=== PATIENT | female | born 1955 | race Caucasian/White ===

== ENCOUNTER 2017-10-28 10:59 | Inpatient (IN) | payer MEDICARE ==
[~2017-10-28 10:59] MED LIST: ACETAMINOPHEN 1,000 MG/100 ML BTL IV ONE; BUPIVACAINE 0.75% W/EPI MPF 30ML VIAL IVP ONE; BUPIVACAINE LIPOSOME 266MG/20ML VIAL IV ONE; CELECOXIB 100 MG CAPSULE PO ONE; FAMOTIDINE 20MG TABLET PO ONE; MECLIZINE 25 MG TABLET PO ONE; METOCLOPRAMIDE 10 MG TABLET PO ONE; TRANEXAMIC ACID 1,000 MG/10 ML ML IV ONE; VANCOMYCIN HCL 1 GM VIAL IVPB ONE; VANCOMYCIN HCL 1,000 MG in DEXTROSE 5 % IN WATER 250 ML IVPB ONE
[2017-10-28] MEDS ORDERED: ACETAMINOPHEN 325 MG TAB PO PRN (11:23)
[2017-10-28] MEDS ORDERED: DEXTROSE 5 % AND 0.9 % NACL 1,000 ML IV PRN (11:23)
[2017-10-28] MEDS ORDERED: ZOLPIDEM TARTRATE 5 MG TABLET PO PRN (11:23)
[2017-10-28] MEDS ORDERED: ACETAMINOPHEN W/ CODEINE 300MG/30MG TABLET PO PRN ×2 (11:23)
[2017-10-28] MEDS ORDERED: TRAMADOL HCL 50 MG TABLET PO PRN ×2 (11:23)
[2017-10-28] MEDS ORDERED: BISACODYL 10 MG SUPP RC PRN (11:23)
[2017-10-28] MEDS ORDERED: KETOROLAC 30 MG/ML VIAL IVP PRN ×2 (11:23)
[2017-10-28] MEDS ORDERED: HYDROMORPHONE HCL 1 MG/ML SYRINGE IM PRN (11:23)
[2017-10-28] MEDS ORDERED: HYDROCODONE/APAP 7.5/325MG TABLET PO PRN (11:23)
[2017-10-28] MEDS ORDERED: AL HYDROX/MAG HYDROX 30ML UD PO PRN (11:23)
[2017-10-28] MEDS ORDERED: NALOXONE 0.4 MG/1 ML VIAL IVP PRN (11:23)
[2017-10-28] MEDS ORDERED: METOCLOPRAMIDE HCL 10 MG/2 ML VIAL IVP PRN (11:23)
[2017-10-28] MEDS ORDERED: DIPHENHYDRAMINE HCL 25 MG CAPSULE PO PRN (11:23)
[2017-10-28] MEDS ORDERED: MORPHINE SULFATE 5 MG/ML PFS IVP PRN ×4 (11:23)
[2017-10-28] MEDS ORDERED: HYDROMORPHONE HCL 2 MG/ML VIAL IM PRN (11:23)
[2017-10-28] MEDS ORDERED: HYDROCODONE/APAP 5/325MG TABLET PO PRN ×2 (11:23)
[2017-10-28] MEDS ORDERED: ACETAMINOPHEN W/ CODEINE 300MG/60MG TABLET PO PRN ×2 (11:23)
[2017-10-28] MEDS ORDERED: MAGNESIUM HYDROXIDE 30 ML UDC PO PRN (11:23)
[2017-10-28] MEDS ORDERED: ONDANSETRON HCL IV 4 MG/2 ML VIAL IVP PRN (11:23)
[2017-10-28] MEDS ORDERED: PROMETHAZINE HCL 12.5 MG in 0.9 % SODIUM CHLORIDE 100ML 50 ML IVPB PRN (11:23)
[2017-10-28 12:12] LABS: ABO GROUP A; RH TYPE POSITIVE
[2017-10-28 12:13] LABS: ANTIBODY SCREEN NEGATIVE (NEGATIVE)
[2017-10-28] MEDS ORDERED: PNEUM 23-VAL ADULT IM ONE (18:11)
[2017-10-28] MEDS ORDERED: PATIENT OWN MED: GABAPENTIN 300 MG PO SCH (22:00)
[2017-10-28] MEDS: FERROUS SULFATE 325 MG TAB PO SCH (22:25)
[2017-10-28] MEDS: DIAZEPAM 5 MG TABLET PO SCH (22:25)
[2017-10-28] MEDS: DOCUSATE SODIUM 100 MG CAPSULE PO SCH (22:26)
[2017-10-29] MEDS ORDERED: VANCOMYCIN HCL 1,000 MG in DEXTROSE 5 % IN WATER 250 ML IVPB SCH ×2 (00:45)
[2017-10-29 06:54] LABS: HEMATOCRIT 39.8 % (35.0-47.0); HEMOGLOBIN 12.7 gm/dl (11.6-16.0)
[2017-10-29] MEDS ORDERED: LEVOTHYROXINE 175 MCG PO SCH (07:00)
[2017-10-29] MEDS: HYDROCODONE/APAP 7.5/325MG TABLET PO PRN ×2 (07:55→11:25)
--- NOTE | 2017-10-29 08:39 | Rehab Evaluation ---
Patient Information - Patient Information Diagnosis: L Hip OA Ordered Treatment: PT Evaluate and Treat Status: Initial Evaluation Surgery: Yes Date of Surgery: 10/29/17 Past Medical/Surgical Hx: PAST MEDICAL/SURGICAL HISTORY Past Surgical History c section x's 2 hernia RTKA tonsils LTKA LTHA appy PMH - Respiratory Hx Respiratory Disorders Yes Hx Asthma Yes: has inhaler that she uses occassionally Hx Bronchitis Yes PMH - Cardiovascular Hx Cardiovascular Disorders Yes Hx Rheumatic Fever Yes: at age 20 Exercise Tolerance Poor Comment: due to hip pain " bone on bone" PMH - Neuro Hx Neurological Disorders Yes Comment: balance off at times with Valium PMH - GI Hx Gastrointestinal Disorders Yes Hx Gastroesophageal Reflux Yes: occassional zantac Hx Weight Loss/Weight Gain Yes: 12 lb loss recently PMH - Hx Genitourinary Disorders Yes Patient No Hx Bladder Problem Yes: incontinent of urine wears a pad PMH - Endocrine Hx Endocrine Disorders Yes Hx Diabetes Yes: "boarderline" Hx Thyroid Disease Yes Hx of NIDDM Yes: on Metformin 4-5 years Comment: doesnt check blood sugar PMH - Musculoskeletal Hx Musculoskeletal Disorders Yes Hx Arthritis Yes Hx Fibromyalgia Yes PMH - Psych Hx Psychiatric Problems Yes Hx Anxiety Yes: extreme Hx Depression Yes PMH - Hematology/Oncology Hx Hematology/Oncology Yes Disorders Hx Blood Transfusion Reaction No Premorbid Status: Detail (The patient was independent with all mobility prior to surgery.) Social History: Detail (The patient lives in a single story home with son and with a ramp at the enterance. The patient's bathroom is equipped with a raised toilet seat and The patient has a wheeled walker.) Precautions: [place], Other (WBAT on the L LE) - Time With Patient Total Time Spent With Patient (Min): 30 Treatment Procedures: Detail (Initial Evaluation.) Subjective Information - Subjective Information Per Patient (The patient complained of L hip pain level 5-6.) Objective Data - Mental Status Patient Orientation: Oriented x3 - Visual Perception Appears within normal limits for therapeutic activities - ROM Not within normal limits (The patient's L LE hip AROM is within total hip precautions, knee and ankle AROM are WNL. The patient's R LE AROM is WNL.) - Strength/Tone Not within normal limits (The patient's L LE strength was not formally tested secondary to status post surgery, however the patient's strength was functional (ie: patient was able to complete a SLR). The patient 's R LE stength was generally 4+ to 5/5.) - Bed Mobility Needs Assist (Independent with Supine to sit with using the trapeze and minimal PA with sit to supine lifting L LE.) - Transfers Independent (Independent sit to and from stand.) - Balance Balance Sitting: Good Balance Standing: Fair (The patient requires support of walker to ambulate.) - Gait Detail (The patient ambulated with wheeled walker WBAT on L LE with CG due to unsteadiness of gait a distance of 45 feet x 1. The patient exhibited shortness of breath after ambulating.) Therapy Assessment - Therapy Assessment Detail (The patient required assistance with mobility and exhibited unsteadiness with gait with walker. Feel the patient will progress well after a few PT sessions.) Patient Education - Patient Education Teaching Topic: Precautions (The patient required verbal cues to recall hip precautions.) Response: Reinforcement Needed Teaching Method: Discussion Teaching Recipient: Patient Barriers To Learning: Age Related Problem List - Problem List Physical Therapy Problem List: Detail (1) Assistance with bed mobility 2) Unsteady gait pattern with ambulation 3) Non ambulatory on stairs 4) Decreased LE strength) Goals - Goals Physical Therapy Goals: 1) The patient will be independent with ambulation on levels with assistive device WBAT on the L LE. 2) The patient will be independent with bed mobilty and all transfers. 3) The patient will be independent with HEP. 4) The patient will ambulate on stairs with supervision for safety WBAT on the L LE. Prognosis - Prognosis Good Plan - Plan Physical Therapy Plan: PT 1-2 times a day for gait training, transfer training, bed mobility and instruction in HEP.
--- NOTE | 2017-10-29 08:51 | RADIOLOGY REPORT ---
EXAM: LEFT HIP HISTORY: POSTOP. TECHNIQUE: A single AP view of the left hip was performed. FINDINGS: Left hip prosthesis in place. No complicating process. IMPRESSION: LEFT HIP PROSTHESIS IN PLACE. JOB NUMBER: [id number] MTDD
[2017-10-29] MEDS ORDERED: CELECOXIB 100 MG CAPSULE PO SCH (10:00)
[2017-10-29] MEDS ORDERED: PATIENT OWN MED: BUPROPION XL 300 MG PO SCH (10:00)
[2017-10-29] MEDS ORDERED: RIVAROXABAN 10 MG TABLET PO SCH (10:00)
[2017-10-29] MEDS ORDERED: CITALOPRAM 20 MG TABLET PO SCH (10:00)
[2017-10-29] MEDS ORDERED: METFORMIN 500 MG TABLET PO SCH (10:00)
[2017-10-29] MEDS: DOCUSATE SODIUM 100 MG CAPSULE PO SCH (10:17)
[2017-10-29] MEDS: DIAZEPAM 5 MG TABLET PO SCH (10:17)
[2017-10-29] MEDS: FERROUS SULFATE 325 MG TAB PO SCH (10:17)
--- NOTE | 2017-10-29 13:11 | Operative Note ---
DATE OF SURGERY: 10/28/2017 PREOPERATIVE DIAGNOSIES: 1. End-stage left hip arthrosis. 2. Morbid obesity. POSTOPERATIVE DIAGNOSES: 1. End-stage left hip arthrosis. 2. Morbid obesity. OPERATION: Cemented left total hip arthroplasty. Surgeon: Mike Remy MD Anesthesia: Spinal. Anesthesia Provider: MEGHAN Moore COMPLICATIONS: None. ESTIMATED BLOOD LOSS: 200 mL OPERATIVE FINDINGS: [id number] hip arthrosis, morbid obesity. COMPONENTS PLACED: A 2 g vancomycin Velazquez [employer]hew Synergy total hip arthroplasty system size 11 femoral component with high offset, a 32 plus 4 head, a 15 mm Reflection acetabular shell with 3 screw holes, 1 acetabular screw, 2 screw caps, centrally-threaded screw cap, and 35-degree hooded high cross-linked polyethylene liner. Indication: This is a 62-year-old female with end-stage knee arthrosis and hip arthrosis. Already done her knees. She is scheduled for her hip now. I explained all risks and benefits in detail for the diagnosis and procedure including but not limited to infection, nerve injury, vessel injury, persistent pain, stiffness, numbness, tingling in her hip, periprosthetic fracture, need for resection arthroplasty if components are infected or loosen, blood clot, and need for further procedures. All her questions were answered. The course was outlined. She agreed to proceed. PROCEDURE: The patient brought to the OR and placed in the right lateral decubitus position. The left hip and lower extremity prepped in sterile fashion. Prepped with Chloraprep and draped. A general timeout was performed. Next, we marked the incision over the gluteal area using an incision marking template. Infiltrated with 0.5% Marcaine with epinephrine. Skin and subcutaneous tissue dissected down to the gluteal fascia. Gluteal fascia split longitudinally. The subgluteal plane was bluntly dissected. Brought in self-retainers. We identified the sciatic nerve. Identified the short external rotators, took them off, tagged them with #2 Vicryl. Incised and released the capsule. Next, we dislocated the femoral head. It was severely deformed and devoid of any normal articular cartilage. We cut the femoral head about 1.5 cm above the lesser trochanter. Next, we inserted the box osteotome. Next, inserted the reamers and reamed up to a size 11. We stopped there. Broached a 9 calcar plane and then a 10 calcar plane, then 11. It fit nicely. She has very thick cortices. Attention turned to the acetabulum. We used acetabular retractor. Released the capsule anteriorly. Placed a retractor there. Removed all the acetabular labrum and capsule. Next, we started reaming in 1 mm increments in 45 degrees inclination and 20 degrees anteversion, reamed up to a size 49. We trialed the 50 and had a nice fit. We irrigated, changed gloves, and impacted down the real 50 acetabular shell with the helicopter guide in appropriate orientation, 45 degrees inclination and 20 degrees anteversion until it was flush with the medial wall. Next, we drilled and inserted a posterior central superior quadrant screw. It was 45 mm. We had excellent purchase. We placed a trial liner and did a trial reduction. Best combination range of motion, stability, and leg lengths was with a 32 plus 4 mm head. This allowed for symmetric leg lengths, flexion to 90, internal rotation to 80 before the hip dislocated and stability with extension and external rotation. Then we removed all trial components after checking the stability and leg lengths. We irrigated copiously the femoral canal, acetabulum, and inserted the 2 screw caps, centrally-threaded screw cap, packed down the real 35-degree highly cross-linked polyethylene liner with lopez in posterior superior quadrant. Placed cement restricted just in the femoral canal. Irrigated copiously, injected the cement and removed the suction catheter and then inserted the real stem until the collar was flush with the medial calcar in 15 degrees of anteversion. Held until cement hardened. We cleaned and dried the trunnion and packed down the real +4 mm Oxinium femoral head component, reduced the hip and found the range of motion to be the same. Leg lengths were equal. We irrigated copiously. Repaired the short external rotator to the abductor using #2 Vicryl stitch. Irrigated again. Closed the gluteal fascia with running #2 Quill after we injected deep and superficial with several sticks of 0.5% Marcaine with epinephrine, 2 g of tranexamic acid, and Exparel mixture. Irrigated again and closed the skin with 2-0 Vicryl and running Quill. Sterile dressing applied. Good fit and orientation of components. Abduction pillow. Patient tolerated the procedure well. No intraoperative complications. All sponge and needle counts correct. To Recovery stable. She will be discharged to the floor for discharge tomorrow. Follow up in 2 weeks. LUC
[2017-10-29] MEDS ORDERED: MIDAZOLAM HCL 2MG/2ML VIAL IV ONE (14:25)
[2017-10-29] MEDS ORDERED: FENTANYL PF 100MCG/2ML VIAL IV ONE (14:25)
[2017-10-29] MEDS ORDERED: VANCOMYCIN HCL 1 GM VIAL IVPB ONE (14:25)
[2017-10-29] MEDS ORDERED: HYDROMORPHONE HCL 2 MG/ML VIAL IV ONE (14:25)
[2017-10-29] MEDS ORDERED: BUPIVACAINE 0.75% W/EPI MPF 30ML VIAL IVP ONE (14:25)
[2017-10-29] MEDS ORDERED: PROPOFOL 10 MG/ML VIAL IV ONE (14:25)
[2017-10-29] MEDS ORDERED: LIDOCAINE 2% MDV (20MG/ML) 20ML VIAL IV ONE (14:25)
--- NOTE | 2017-10-29 14:48 | Rehab Evaluation ---
Patient Information - Patient Information Diagnosis: L Hip OA Ordered Treatment: OT Evaluate and Treat Status: Initial Evaluation Surgery: Yes (Left SONG) Date of Surgery: 10/28/17 Past Medical/Surgical Hx: PAST MEDICAL/SURGICAL HISTORY Past Surgical History c section x's 2 hernia RTKA tonsils LTKA LTHA appy PMH - Respiratory Hx Respiratory Disorders Yes Hx Asthma Yes: has inhaler that she uses occassionally Hx Bronchitis Yes PMH - Cardiovascular Hx Cardiovascular Disorders Yes Hx Rheumatic Fever Yes: at age 20 Exercise Tolerance Poor Comment: due to hip pain " bone on bone" PMH - Neuro Hx Neurological Disorders Yes Comment: balance off at times with Valium PMH - GI Hx Gastrointestinal Disorders Yes Hx Gastroesophageal Reflux Yes: occassional zantac Hx Weight Loss/Weight Gain Yes: 12 lb loss recently PMH - Hx Genitourinary Disorders Yes Patient No Hx Bladder Problem Yes: incontinent of urine wears a pad PMH - Endocrine Hx Endocrine Disorders Yes Hx Diabetes Yes: "boarderline" Hx Thyroid Disease Yes Hx of NIDDM Yes: on Metformin 4-5 years Comment: doesnt check blood sugar PMH - Musculoskeletal Hx Musculoskeletal Disorders Yes Hx Arthritis Yes Hx Fibromyalgia Yes PMH - Psych Hx Psychiatric Problems Yes Hx Anxiety Yes: extreme Hx Depression Yes PMH - Hematology/Oncology Hx Hematology/Oncology Yes Disorders Hx Blood Transfusion Reaction No Premorbid Status: Detail (The patient was independent with all mobility prior to surgery.) Social History: Detail (The patient lives in a single story home with son and with a ramp at the entrance. The patient's bathroom is equipped with a raised toilet seat and bathtub. The patient has a wheeled walker. Her spouse and son assist with all ADLs and IADLs. She reports having a supervisor machine workers somewhere at home.) Precautions: [place], Other (WBAT on the L LE, total hip precautions) - Time With Patient Total Time Spent With Patient (Min): 30 Treatment Procedures: Detail (OT eval low complexity) Subjective Information - Subjective Information Per Patient Objective Data - Pain Pain Present: Yes - Mental Status Patient Orientation: Oriented x3 - Visual Perception Appears within normal limits for therapeutic activities - ROM Within normal limits (Willian UE AROM WNL) - Strength/Tone Within normal limits (Willian UE strength WNL) - Coordination Appears within normal limits for therapeutic activities - Transfers Independent (Ind with sit to stand from raised surface.) - Balance Balance Sitting: Good Balance Standing: Fair - Sensation Intact - Gait Detail (Pt ambulating in room with 2 wheeled walker and CG assist.) - ADL's/IADL's Detail (Pt educated re: LE dressing with use of adaptive equipment, pt was able to demo doffing and donning of briefs and pants with use of supervisor machine workers but required cues to remember hip precautions. She reports spouse with assist with all ADLs. Reviewed precautions with spouse and he verbalized understanding.) Therapy Assessment - Therapy Assessment Detail (Pt reports spouse will be assisting with all ADLs and IADLs, she was able to demo LE dressing with supervisor machine workers but required verbal cues for recall of hip precautions.) Problem List - Problem List Physical Therapy Problem List: Detail (1) Assistance with bed mobility 2) Unsteady gait pattern with ambulation 3) Non ambulatory on stairs 4) Decreased LE strength) Occupational Therapy Problem List: Detail (No IP OT problems identified.) Goals - Goals Physical Therapy Goals: 1) The patient will be independent with ambulation on levels with assistive device WBAT on the L LE. 2) The patient will be independent with bed mobilty and all transfers. 3) The patient will be independent with HEP. 4) The patient will ambulate on stairs with supervision for safety WBAT on the L LE. Occupational Therapy Goals: No IP OT goals identified. Prognosis - Prognosis Good Plan - Plan Physical Therapy Plan: PT 1-2 times a day for gait training, transfer training, bed mobility and instruction in HEP. Occupational Therapy Plan: No further IP OT recommended. Thank you for this referral.
--- NOTE | 2017-10-29 15:07 | Physical Therapy Tx Note ---
Physical Therapy Tx Note - Treatment Note Tolerated: Fair Total Time Spent With Patient: 20 Physical Therapy Tx Note: Detail (The patient was up in chair with coat on when PT arrived. The patient reported she felt higher then a kite. The patient ambulated with 13 feet x 1 to bathroom and was independent with toilet transfer. The patient ambulated with wheeled walker a distance of 80 feet x 1 with CG of 1 for safety WBAT on the L LE. The was steadier then am but tended to place walker too far out in front of her. The patient refused to ambulate on stairs, stating she would walk on ramp. The patient's hip precautions and HEP were reviewed. The patient's was instructed to ambulate with patient at home due to her feeling of "being high" due to pain medications. The patient's stated he understood and would walk with her. The patient was discharged to home and is to receive Home Care.) Physical Therapy Problem List: Detail (1) Assistance with bed mobility 2) Unsteady gait pattern with ambulation 3) Non ambulatory on stairs 4) Decreased LE strength) Physical Therapy Goals: 1) The patient will be independent with ambulation on levels with assistive device WBAT on the L LE. 2) The patient will be independent with bed mobilty and all transfers. 3) The patient will be independent with HEP. 4) The patient will ambulate on stairs with supervision for safety WBAT on the L LE. Physical Therapy Plan: PT 1-2 times a day for gait training, transfer training, bed mobility and instruction in HEP.
== END 2017-10-29 14:26 | disposition home health service (06) | DRG 470 ==
LOC: MEDSURG 10:59
PROVIDERS: ADMIT Orthopaedic Surgery; ATTEND Orthopaedic Surgery
PROC: 0SRB069 Replacement of Left Hip Joint with Oxidized Zirconium on Polyethylene Synthetic Substitute, Cemented, Open Approach (ICD-10-PCS; principal; 2017-10-28 13:00)
DX: M16.12 Unilateral primary osteoarthritis, left hip (principal); E66.01 Morbid (severe) obesity due to excess calories; E11.9 Type 2 diabetes mellitus without complications; Z79.84 Long term (current) use of oral hypoglycemic drugs; F41.8 Other specified anxiety disorders; E03.9 Hypothyroidism, unspecified
CPT/HCPCS: 36416; 82948; 85014; 85018; 86850; 86900; 86901; 94760; 97110; 97165; J3490; J7060